=== PATIENT | female | born 1995 | race Caucasian/White ===

== ENCOUNTER → 2023-10-09 17:00 | Outpatient (REF) | payer BC, SELFPAY | LOC: RAD 17:00 | PROVIDERS: ATTENDING PHYSICIAN Internal Medicine | DX: R10.9 Unspecified abdominal pain (principal) | CPT/HCPCS: 76775 ==

== ENCOUNTER 2023-12-01 10:12 | Emergency (ER) | payer BC, SELFPAY ==
[2023-12-01 10:13] VITALS: BP 132/88
[2023-12-01 10:28] VITALS: BMI 25.3
--- NOTE | 2023-12-01 10:55 | ED.GENMED ---
History of Present Illness
General
Chief Complaint: Head Injury
Time Seen by Provider: 12/01/23 10:35
Travel History
Have you had any contact with someone who has COVID-19?: No
Do you have any symptoms of coronavirus? Fever > 100 degrees, chills, cough, shortness of breath, sore throat, loss of taste or smell, muscle aches, or headache?: No
History of Present Illness
History of Present Illness:
28-year-old otherwise healthy female presents to the emergency department for evaluation of headache, nausea, photophobia, and dizziness beginning yesterday after striking her head against a beam in her attic. States she stood up quickly and struck
her occiput against a support beam which caused her to fall forward. There was no loss of consciousness. Denies any episodes of vomiting. Has not taken any medication for symptom control at this point. Was evaluated in urgent care and sent to
the emergency department for further evaluation. Has no history of bleeding disorders and takes no anticoagulants or antiplatelets
Review of Systems
Review of Systems
Allergies reviewed?: Yes
All Other Systems: ROS reviewed and negative except as documented in HPI and ROS
Phy Exam
Physical Exam
Physical Exam:
GEN: Well appearing, NAD, WDWN
HEENT: Oral mucosa moist, no scleral icterus, no nasal congestion
Cardiac: Regular rate
Lung: No respiratory distress, no tachypnea
MSK: No gross deformity or injuries
Skin: Good color, no pallor or jaundice, no rashes
Neuro: AO x3; CN II-XII grossly intact. BUE strength 5/5 in all cabral, sensation intact and symmetric. BLE strength 5/5 in all cabral, sensation intact and symmetric
Psych: Calm, cooperative
Course
Vital Signs
Initial and Last Documented VS:
Initial Vital Signs
Temp Pulse Resp BP Pulse Ox
98.3 F 83 16 132/88 99
12/01/23 10:13 12/01/23 10:13 12/01/23 10:13 12/01/23 10:13 12/01/23 10:13
Last Documented Vital Signs
Temp Pulse Resp BP Pulse Ox
98 F 74 18 128/68 99
12/01/23 10:58 12/01/23 10:58 12/01/23 10:58 12/01/23 10:58 12/01/23 10:58
MDM/Problems Addressed
MDM/Problems Addressed:
Patient is clinically well-appearing with no focal neurologic deficits and no exam findings concerning for skull fracture. I discussed the potential benefits of a CT scan, at this time I see no objective rationale for CT, patient is comfortable
with no imaging at this time. Discussed supportive care
*Critical Care Note
Total Time (30-74mins, 75-104mins- exclusive of procedures): Not Applicable
ED Attending Note
-
Portions of this chart may have been created with voice recognition software.� Occasional wrong word or��sound alike� substitutions may have occurred due to the inherent limitations of voice recognition software.
Discharge Plan
Departure
Patient Disposition: Home (Routine Discharge)
Date of Disposition: 12/01/23
Time of Disposition: 10:55
Patient with high blood pressure during this ER visit?: No
Discharge Problem:
Concussion
Instructions: Concussion, Adult (DC)
Referrals:
Yessenia Ellsworth CRNP [Family Provider] -
Stand Alone Forms: Return to Work
Interventions
Interventions:
*Risk Screen - Suicide Last Done: 12/01/23 10:13
*General Assessment Last Done: 12/01/23 10:13
*Neglect/Abuse Screening Last Done: 12/01/23 10:13
ED- Fall Risk Assessment Last Done: 12/01/23 10:28
*ED COVID-19 Vaccine History Last Done: 12/01/23 10:28
*Nursing Disposition Last Done: 12/01/23 10:59
ED- Neurological Assessment Last Done: 12/01/23 10:28
Discharge Date and Time
Discharge Date/Time: 12/01/23 11:00
Print Language: PARAGUAYAN
[2023-12-01 10:58] VITALS: BP 128/68
== END 2023-12-01 11:00 | disposition home or self-care (01) ==
LOC: EMR 10:12
PROVIDERS: EMERGENCY PHYSICIAN Emergency Medicine; FAMILY PHYSICIAN Nurse Practitioner
DX: S06.0X0A Concussion without loss of consciousness, initial encounter (principal); W22.09XA Striking against other stationary object, initial encounter
CPT/HCPCS: 99283

== ENCOUNTER → 2025-05-05 10:17 | Outpatient (REF) | payer BC, SELFPAY | LOC: RAD 10:17 | PROVIDERS: ATTENDING PHYSICIAN Hospitalist | DX: R22.42 Localized swelling, mass and lump, left lower limb (principal); S89.92XA Unspecified injury of left lower leg, initial encounter | CPT/HCPCS: 73590 ==